=== PATIENT | male | born 1980 | race Caucasian/White ===

== ENCOUNTER 2023-05-21 18:58 | Emergency (ER) | payer OTHER, SELFPAY ==
[2023-05-21 19:13] VITALS: BP 144/98; PULSE 68; RESP 16; TEMP 36.2; O2SAT 100
--- NOTE | 2023-05-21 19:33 | ED.URI ---
HPI - URI/Sore Throat General Chief Complaint: Upper Respiratory Infection Stated Complaint: Sinus Time Seen by Provider: 05/21/23 19:26 Source: patient and RN notes reviewed Mode of arrival: ambulatory Limitations: no limitations History of Present Illness HPI Narrative: Patient presents today with a 3 day history of sore throat, rhinorrhea, cough, sneezing. States sore throat is worse in the morning as patient snores and breathes through his mouth. He currently rates his pain 7/10 and has been taking DayQuil and NyQuil without much relief. Denies shortness of breath. No history of asthma or COPD. Related Data Home Medications Medication Instructions Recorded Confirmed No Home Medications 05/21/23 05/21/23 Allergies Allergy/AdvReac Type Severity Reaction Status Date / Time No Known Allergies Allergy Verified 05/21/23 19:11 Review of Systems Review of Systems: CONSTITUTIONAL: Denies body aches, fever, chills, or sweats. EYES: Denies visual changes, redness, or discharge. ENT: Denies congestion, or otalgia.+ rhinorrhea, sore throat, sneezing CARDIOVASCULAR: Denies chest pain, palpitations, or edema. RESPIRATORY: Denies dyspnea.+ cough GASTROINTESTINAL: Denies abdominal pain, nausea, vomiting, or diarrhea. GENITOURINARY: Denies dysuria or hematuria. SKIN: Denies rash, itching, or wounds. MUSCULOSKELETAL: Denies back pain, joint pain, or myalgia. NEUROLOGIC: Denies headache, numbness, tingling, or weakness. PSYCH: Denies depression or anxiety. PMFSH Comments At time of signature, I have reviewed and agree with nursing past medical, surgical, social and family history unless otherwise noted. Please see nursing chart for further information. There is no relevant family history pertinent to the presenting complaint Exam Narrative: GENERAL: Mildly ill-appearing, well-nourished, and in no acute distress. HEAD: Normocephalic, atraumatic. EYES: EOMI. No redness or drainage. Conjunctivae normal. ENT: Mucous membranes pink and moist. Nares congested with rhinorrhea. TMs normal bilaterally. Throat erythematous and mildly edematous without exudate. Uvula midline. NECK: Normal AROM. Supple. No lymphadenopathy. CHEST: No respiratory distress. Clear to auscultation. HEART: Regular rate and rhythm. No murmur appreciated. EXTREMITIES: Normal range of motion. No edema. SKIN: Warm, dry, no rash. Capillary refill normal. Normal skin turgor. NEURO: No focal deficits. Alert and oriented x3. Gait steady. PSYCH: Normal affect. No signs of depression or anxiety. Course Course Level of Care: Express Care Visit Vital Signs Vital signs: Vital Signs Temperature 97.1 F L 05/21/23 19:13 Pulse Rate 68 05/21/23 19:13 Respiratory Rate 16 05/21/23 19:13 Blood Pressure 144/98 H 05/21/23 19:13 Pulse Oximetry 100 05/21/23 19:13 Oxygen Delivery Room Air 05/21/23 19:13 Temperature 97.1 F L 05/21/23 19:13 Pulse Rate 68 05/21/23 19:13 Respiratory Rate 16 05/21/23 19:13 Blood Pressure 144/98 H 05/21/23 19:13 Pulse Oximetry 100 05/21/23 19:13 Oxygen Delivery Room Air 05/21/23 19:13 Reviewed MDM - URI/Sore Throat MDM Narrative Medical decision making narrative: Influenza, COVID, strep negative. Strep culture pending. Symptoms likely viral in etiology. Discussed [id number] medication and adding an NSAID to help with his sore throat. No prescription medications indicated at this time. Anticipatory guidance given. Differential Diagnosis Differential diagnosis: Likely upper respiratory infection, sinusitis, viral infection, influenza, pharyngitis and other (Strep throat, COVID-19) Lab Data Attestation: I reviewed the patient's lab results. Labs: Lab Results 05/21/23 Range/Units 19:10 POC SARS CoV-2 Ag Negative (Negative) Influenza A Screen Negative Reference Range: Negative Influenza
== END 2023-05-21 19:39 | disposition home or self-care (01) ==
PROVIDERS: Emergency Provider Nurse Practitioner; PCP Internal Medicine
DX: J06.9 Acute upper respiratory infection, unspecified (principal); Z20.822 Contact with and (suspected) exposure to COVID-19
CPT/HCPCS: 87081; 87426; 87804; 87880; 99213; C9803; G0463